=== PATIENT | female | born 1930 | race Two or more races ===

== ENCOUNTER 2020-02-19 00:02 | Inpatient (IN) | payer MEDICARE, MEDICAID ==
[~2020-02-19] VITALS: Ht 152.4 cm; Wt 86.2 kg
[2020-02-19 02:00] VITALS: BP 90/69
[2020-02-19] MEDS: Xarelto 10mg tab ORAL SCH (03:03)
[2020-02-19] MEDS ORDERED: FUROSEMIDE40 MG/5 ML ORAL (03:41)
[2020-02-19] MEDS ORDERED: CENTRUM SILVER1 EAC4 PO (03:41)
[2020-02-19] MEDS ORDERED: LISINOPRIL20 MG ORAL (03:41)
[2020-02-19] MEDS ORDERED: STOOL SOFTENER100 MG PO (03:41)
[2020-02-19] MEDS ORDERED: POTASSIUM99 M3 PO (03:41)
[2020-02-19] MEDS ORDERED: OMEPRAZOLE20 M3 ORAL (03:41)
[2020-02-19] MEDS ORDERED: CLARITIN10 M2 ORAL (03:41)
[2020-02-19] MEDS ORDERED: VITAMIN D3250 MCG PO (03:41)
[2020-02-19 04:00] VITALS: BP 105/54
[2020-02-19] MEDS ORDERED: Tylenol #3 tab (300mg/30mg) ORAL PRN (07:15)
[2020-02-19] MEDS ORDERED: Zolpidem 5mg tab ORAL PRN (07:15)
[2020-02-19 08:00] VITALS: BP 108/54
[2020-02-19] MEDS: Docusate 100mg cap ORAL SCH ×3 (08:46→17:58)
--- NOTE | 2020-02-19 09:20 | Cardiac Electrophysiology PN ---
Subjective Subjective PATIENT SEEN WITH RN PRESENT. [id number] Objective Last 24 Hour Vital Signs Date Time Temp Pulse Resp B/P (MAP) Pulse Ox O2 Delivery O2 Flow Rate FiO2 02/19/20 04:16 Nasal Cannula 2.0 02/19/20 04:00 97.1 114 20 105/54 (71) 95 02/19/20 04:00 97.1 114 20 105/54 (71) 95 02/19/20 02:00 99.3 86 90/69 (76) 95 Intake and Output 02/18/20 02/19/20 19:00 07:00 # Voids 2 Barrett Jacinto MD Feb 19, 2020 09:20
[2020-02-19] MEDS ORDERED: Digoxin 0.5mg/2ml Inj IVP SCH (09:30)
[2020-02-19 09:58] LABS: BASOPHILS % (AUTO) 0.8 % (0.0-2.0); EOSINOPHILS % (AUTO) 0.7 % (0.0-3.0); HEMATOCRIT 35.8 % (37.0-47.0); HEMOGLOBIN 9.6 G/DL (12.0-16.0); LYMPHOCYTES % (AUTO) 21.2 % (20.0-45.0); MEAN CORPUSCULAR VOLUME 80 FL (80-99); MONOCYTES % (AUTO) 5.7 % (1.0-10.0); NEUTROPHILS % (AUTO) 71.7 % (45.0-75.0); PLATELET COUNT 221 K/UL (150-450); RED BLOOD COUNT 4.49 M/UL (4.20-5.40); RED CELL DISTRIBUTION WIDTH 18.1 % (11.6-14.8); WHITE BLOOD COUNT 7.6 K/UL (4.8-10.8)
[2020-02-19 10:29] LABS: ALANINE AMINOTRANSFERASE 27 U/L (12-78); ALBUMIN 3.3 G/DL (3.4-5.0); ALBUMIN/GLOBULIN RATIO 0.8 (1.0-2.7); ALKALINE PHOSPHATASE 102 U/L (46-116); ASPARTATE AMINO TRANSFERASE 18 U/L (15-37); BILIRUBIN,TOTAL 0.3 MG/DL (0.2-1.0); BLOOD UREA NITROGEN 7 mg/dL (7-18); CALCIUM 8.6 MG/DL (8.5-10.1); CHLORIDE 93 MMOL/L (98-107); CREATININE 0.5 MG/DL (0.55-1.30); POTASSIUM 3.6 MMOL/L (3.5-5.1); SODIUM 140 MMOL/L (136-145)
[2020-02-19 10:33] LABS: CARBON DIOXIDE > 45 MMOL/L (21-32)
[2020-02-19] MEDS ORDERED: Promethazine/Codeine 5ml UD ORAL PRN (11:45)
[2020-02-19 11:57] LABS: LACTATE DEHYDROGENASE 233 U/L (81-234)
[2020-02-19 12:00] VITALS: BP 116/65
--- NOTE | 2020-02-19 12:02 | Consultation ---
History of Present Illness General Date patient seen: Feb 19, 2020 Present Illness HPI 89 year old female with hx of chronic incomplete quadriplegia, s/p cervical laminectomy, DM, CHF, on Xarelto was taken to [facility] by paramedics with CC of shortness of breath and generalized weakness. She had home oxygen, 2 liter. She was found to be in rapid A-fib. After initial treatment, she is transferred to [facility] for further treatment. Allergies: Coded Allergies: NO KNOWN ALLERGIES (Verified Allergy, Unknown, 02/19/20) Medication History Scheduled Docusate Sodium (Stool Softener), 100 MG PO THREE TIMES A DAY, (Reported) Furosemide (Furosemide), 40 MG ORAL DAILY, (Reported) Lisinopril (Lisinopril*), 40 MG ORAL DAILY, (Reported) Loratadine (Claritin), 10 MG ORAL DAILY, (Reported) Mu-Vits-Min Th/Lycopene/Lutein (Centrum Silver Tablet), 1 EACH PO DAILY, ( Reported) Omeprazole (Omeprazole), 20 MG ORAL DAILY, (Reported) Miscellaneous Medications Cholecalciferol (Vitamin D3) (Vitamin D3), 1 MCG PO, (Reported) Potassium Gluconate (Potassium), 8 MG PO, (Reported) Patient History Healthcare decision maker Resuscitation status Advanced Directive on File Yes Past Medical/Surgical History Past Medical/Surgical History: (1) Chronic anticoagulation (2) Chronic incomplete quadriplegia (3) Diabetes mellitus Review of Systems Respiratory: Reports: shortness of breath, sputum All Other Systems: negative except mentioned in HPI Physical Exam General Appearance: WD/WN, obese Lines, tubes and drains: peripheral HEENT: normocephalic, atraumatic Neck: non-tender, normal alignment Respiratory/Chest: chest wall non-tender, rhonchi - left, rhonchi - right Cardiovascular/Chest: normal peripheral pulses, normal rate Abdomen: normal bowel sounds, non tender Genitourinary/Rectal: normal genital exam Extremities: moderate edema Skin Exam: normal pigmentation 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 normal, motor weakness Last 24 Hour Vital Signs Date Time Temp Pulse Resp B/P (MAP) Pulse Ox O2 Delivery O2 Flow Rate FiO2 02/19/20 10:25 114 02/19/20 04:16 Nasal Cannula 2.0 02/19/20 04:00 97.1 114 20 105/54 (71) 95 02/19/20 04:00 97.1 114 20 105/54 (71) 95 02/19/20 02:00 99.3 86 90/69 (76) 95 Intake and Output 02/18/20 02/19/20 19:00 07:00 # Voids 2 Laboratory Tests Test 02/19/20 09:45 White Blood Count 7.6 K/UL (4.8-10.8) Red Blood Count 4.49 M/UL (4.20-5.40) Hemoglobin 9.6 G/DL (12.0-16.0) L Hematocrit 35.8 % (37.0-47.0) L Mean Corpuscular Volume 80 FL (80-99) Mean Corpuscular Hemoglobin 21.5 PG (27.0-31.0) L Mean Corpuscular Hemoglobin Concent 27.0 G/DL (32.0-36.0) L Red Cell Distribution Width 18.1 % (11.6-14.8) H Platelet Count 221 K/UL (150-450) Mean Platelet Volume 6.5 FL (6.5-10.1) Neutrophils (%) (Auto) 71.7 % (45.0-75.0) Lymphocytes (%) (Auto) 21.2 % (20.0-45.0) Monocytes (%) (Auto) 5.7 % (1.0-10.0) Eosinophils (%) (Auto) 0.7 % (0.0-3.0) Basophils (%) (Auto) 0.8 % (0.0-2.0) Sodium Level 140 MMOL/L (136-145) Potassium Level 3.6 MMOL/L (3.5-5.1) Chloride Level 93 MMOL/L (98-107) L Carbon Dioxide Level > 45 MMOL/L (21-32) *H Blood Urea Nitrogen 7 mg/dL (7-18) Creatinine 0.5 MG/DL (0.55-1.30) L Estimat Glomerular Filtration Rate > 60 mL/min (>60) Glucose Level 276 MG/DL (74-106) H Calcium Level 8.6 MG/DL (8.5-10.1) Phosphorus Level 3.0 MG/DL (2.5-4.9) Magnesium Level 1.2 MG/DL (1.8-2.4) L Total Bilirubin 0.3 MG/DL (0.2-1.0) Aspartate Amino Transf (AST/SGOT) 18 U/L (15-37) Alanine Aminotransferase (ALT/SGPT) 27 U/L (12-78) Alkaline Phosphatase 102 U/L (46-116) Troponin I 0.002 ng/mL (0.000-0.056) Pro-B-Type Natriuretic Peptide 1258 pg/mL (0-125) H Total Protein 7.2 G/DL (6.4-8.2) Albumin 3.3 G/DL (3.4-5.0) L Globulin 3.9 g/dL Albumin/Globulin Ratio 0.8 (1.0-2.7) L Height (Feet): 5 Weight (Pounds): 190 Medications Current Medications Medications (Trade) Dose Ordered Sig/Alethea Route PRN Reason Start Time Stop Time Status Last Admin Dose Admin Acetaminophen (Tylenol) 650 mg Q6H PRN ORAL For Headache 02/19/20 07:15 03/20/20 07:14 Acetaminophen/ Codeine Phosphate (Tylenol #3) 1 tab Q6H PRN ORAL pain 02/19/20 07:15 02/26/20 07:14 Digoxin (Lanoxin) 0.25 mg DAILY ORAL 02/20/20 09:00 05/20/20 08:59 Docusate Sodium (Colace) 100 mg THREE TIMES A DAY ORAL 02/19/20 09:00 03/20/20 08:59 02/19/20 08:46 Metoprolol Tartrate (Lopressor) 25 mg Q12HR ORAL 02/19/20 09:00 05/19/20 08:59 Ondansetron HCl (Zofran) 4 mg Q6H PRN IVP Nausea & Vomiting 02/19/20 07:15 03/20/20 07:14 Pantoprazole (Protonix) 40 mg DAILY ORAL 02/19/20 09:00 03/20/20 08:59 02/19/20 08:46 Potassium Chloride (K-Dur) 10 meq DAILY ORAL 02/19/20 10:40 05/19/20 10:39 02/19/20 11:39 Promethazine HCl/ Codeine (Phenergan with Codeine) 5 ml Q4H PRN ORAL For Cough 02/19/20 11:45 03/20/20 11:44 Rivaroxaban (Xarelto) 20 mg DAILY ORAL 02/19/20 10:43 05/19/20 10:42 02/19/20 03:03 Zolpidem Tartrate (Ambien) 5 mg HSPRN PRN ORAL Insomnia 02/19/20 07:15 02/26/20 07:14 Assessment/Plan Problem List: (1) Suspected COVID-19 virus infection ICD Codes: Z20.828 - Contact with and (suspected) exposure to other viral communicable diseases SNOMED: 452351542 (2) Rapid atrial fibrillation ICD Codes: I48.91 - Unspecified atrial fibrillation SNOMED: 300556781 (3) Pulmonary edema ICD Codes: J81.1 - Chronic pulmonary edema SNOMED: 43458563 (4) Diabetes mellitus ICD Codes: E11.9 - Type 2 diabetes mellitus without complications SNOMED: 84695716 (5) On home O2 ICD Codes: Z99.81 - Dependence on supplemental oxygen SNOMED: 412165483380 (6) posteior cervical laminectomy (7) Chronic incomplete quadriplegia ICD Codes: G82.50 - Quadriplegia, unspecified SNOMED: 37835027, 156136974 (8) Chronic anticoagulation ICD Codes: Z79.01 - long term (current) use of anticoagulants SNOMED: 651573767 Assessment/Plan: respiratory treatment check sputum f/u BNP and CXR echocardiogram dvt prophylaxis (pt is on Xarelto) control heart rate symptomatic treatment Keo Posadas MD Feb 19, 2020 12:02
[2020-02-19 12:40] LABS: % IRON SATURATION 5 % (15-50); IRON 23 ug/dL (50-175); TOTAL IRON BINDING CAPACITY 448 ug/dL (250-450)
--- NOTE | 2020-02-19 13:58 | Diagnostic Imaging Report ---
Indication: Shortness of breath Technique: XRAY Chest 1v Comparison: None Findings: Heart is enlarged. There are bilateral pleural effusions, left greater than right. There are bibasilar airspace opacities. There is haziness of the pulmonary vascularity. There is no evidence of pneumothorax. There are atherosclerotic vascular calcifications. There are degenerative changes in the spine and shoulders. Cervical fixation hardware is noted. IMPRESSION: Cardiomegaly with interstitial opacification/edema and small bilateral pleural effusions likely related to CHF. Bibasilar airspace opacities may be related to compressive atelectasis. Superimposed pneumonia however is not excluded. Correlation with clinical findings and follow-up recommended.
[2020-02-19] MEDS: cefTRIAXone 1 GM in D5W 55 ML IVPB SCH (14:00)
--- NOTE | 2020-02-19 14:52 | Consultation ---
History of Present Illness General Date patient seen: Feb 19, 2020 Present Illness HPI 89 y/o F with hx of chronic incomplete quadriplegia, s/p cervical laminectomy, DM, CHF on home O2 at 2l nC, Afib on Xarelto is transferred from [facility] to [facility] on 02/18 with SOB and generalized weakness. Upon admissions, was noted to be in Afib with rapid RVR Allergies: Coded Allergies: NO KNOWN ALLERGIES (Verified Allergy, Unknown, 02/19/20) Medication History Scheduled Docusate Sodium (Stool Softener), 100 MG PO THREE TIMES A DAY, (Reported) Furosemide (Furosemide), 40 MG ORAL DAILY, (Reported) Lisinopril (Lisinopril*), 40 MG ORAL DAILY, (Reported) Loratadine (Claritin), 10 MG ORAL DAILY, (Reported) Mu-Vits-Min Th/Lycopene/Lutein (Centrum Silver Tablet), 1 EACH PO DAILY, ( Reported) Omeprazole (Omeprazole), 20 MG ORAL DAILY, (Reported) Miscellaneous Medications Cholecalciferol (Vitamin D3) (Vitamin D3), 1 MCG PO, (Reported) Potassium Gluconate (Potassium), 8 MG PO, (Reported) Patient History Healthcare decision maker Resuscitation status Advanced Directive on File Yes Patient History Narrative Pmhx: as above Shx: reviewed Fhx: non contributory Review of Systems All Other Systems: negative except mentioned in HPI Physical Exam Physical Exam Narrative General Appearance: WD/WN, obese HEENT: normocephalic, atraumatic Neck: non-tender, normal alignment Respiratory/Chest: chest wall non-tender, rhonchi - left, rhonchi - right Cardiovascular/Chest: normal peripheral pulses, normal rate Abdomen: normal bowel sounds, non tender Extremities: moderate edema Skin Exam: normal pigmentation 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 normal, motor weakness Last 24 Hour Vital Signs Date Time Temp Pulse Resp B/P (MAP) Pulse Ox O2 Delivery O2 Flow Rate FiO2 02/19/20 10:25 114 02/19/20 04:16 Nasal Cannula 2.0 02/19/20 04:00 97.1 114 20 105/54 (71) 95 02/19/20 04:00 97.1 114 20 105/54 (71) 95 02/19/20 02:00 99.3 86 90/69 (76) 95 Intake and Output 02/18/20 02/19/20 19:00 07:00 # Voids 2 Laboratory Tests Test 02/19/20 09:45 White Blood Count 7.6 K/UL (4.8-10.8) Red Blood Count 4.49 M/UL (4.20-5.40) Hemoglobin 9.6 G/DL (12.0-16.0) L Hematocrit 35.8 % (37.0-47.0) L Mean Corpuscular Volume 80 FL (80-99) Mean Corpuscular Hemoglobin 21.5 PG (27.0-31.0) L Mean Corpuscular Hemoglobin Concent 27.0 G/DL (32.0-36.0) L Red Cell Distribution Width 18.1 % (11.6-14.8) H Platelet Count 221 K/UL (150-450) Mean Platelet Volume 6.5 FL (6.5-10.1) Neutrophils (%) (Auto) 71.7 % (45.0-75.0) Lymphocytes (%) (Auto) 21.2 % (20.0-45.0) Monocytes (%) (Auto) 5.7 % (1.0-10.0) Eosinophils (%) (Auto) 0.7 % (0.0-3.0) Basophils (%) (Auto) 0.8 % (0.0-2.0) Differential Total Cells Counted 100 Neutrophils % (Manual) 69 % (45-75) Lymphocytes % (Manual) 26 % (20-45) Monocytes % (Manual) 5 % (1-10) Eosinophils % (Manual) 0 % (0-3) Basophils % (Manual) 0 % (0-2) Band Neutrophils 0 % (0-8) Platelet Estimate Adequate Platelet Morphology Normal Hypochromasia 2+ Anisocytosis 2+ Erythrocyte Sedimentation Rate 14 MM/HR (0-30) Reticulocyte Count 1.6 % (0.5-2.0) Sodium Level 140 MMOL/L (136-145) Potassium Level 3.6 MMOL/L (3.5-5.1) Chloride Level 93 MMOL/L (98-107) L Carbon Dioxide Level > 45 MMOL/L (21-32) *H Blood Urea Nitrogen 7 mg/dL (7-18) Creatinine 0.5 MG/DL (0.55-1.30) L Estimat Glomerular Filtration Rate > 60 mL/min (>60) Glucose Level 276 MG/DL (74-106) H Calcium Level 8.6 MG/DL (8.5-10.1) Phosphorus Level 3.0 MG/DL (2.5-4.9) Magnesium Level 1.2 MG/DL (1.8-2.4) L Iron Level 23 ug/dL (50-175) L Total Iron Binding Capacity 448 ug/dL (250-450) Percent Iron Saturation 5 % (15-50) L Unsaturated Iron Binding 425 ug/dL (112-346) H Total Bilirubin 0.3 MG/DL (0.2-1.0) Aspartate Amino Transf (AST/SGOT) 18 U/L (15-37) Alanine Aminotransferase (ALT/SGPT) 27 U/L (12-78) Alkaline Phosphatase 102 U/L (46-116) Lactate Dehydrogenase 233 U/L (81-234) Troponin I 0.002 ng/mL (0.000-0.056) Pro-B-Type Natriuretic Peptide 1258 pg/mL (0-125) H Total Protein 7.2 G/DL (6.4-8.2) Albumin 3.3 G/DL (3.4-5.0) L Globulin 3.9 g/dL Albumin/Globulin Ratio 0.8 (1.0-2.7) L Carcinoembryonic Antigen Pending Vitamin B12 Level 1056 PG/ML (193-986) H Folate 56.4 NG/ML (8.6-58.9) Height (Feet): 5 Weight (Pounds): 190 Medications Current Medications Medications (Trade) Dose Ordered Sig/Alethea Route PRN Reason Start Time Stop Time Status Last Admin Dose Admin Acetaminophen (Tylenol) 650 mg Q6H PRN ORAL For Headache 02/19/20 07:15 03/20/20 07:14 Acetaminophen/ Codeine Phosphate (Tylenol #3) 1 tab Q6H PRN ORAL pain 02/19/20 07:15 02/26/20 07:14 Ceftriaxone Sodium 1 gm/ Dextrose 55 ml @ 110 mls/hr Q24H IVPB 02/19/20 14:00 02/26/20 13:59 Dextrose (Dextrose 50%) 25 ml Q30M PRN IV Hypoglycemia 02/19/20 12:00 05/19/20 11:59 Dextrose (Dextrose 50%) 50 ml Q30M PRN IV Hypoglycemia 02/19/20 12:00 05/19/20 11:59 Digoxin (Lanoxin) 0.25 mg DAILY ORAL 02/20/20 09:00 05/20/20 08:59 Docusate Sodium (Colace) 100 mg THREE TIMES A DAY ORAL 02/19/20 09:00 03/20/20 08:59 02/19/20 08:46 Insulin Aspart (NovoLOG) BEFORE MEALS AND HS SUBQ 02/19/20 16:30 05/19/20 16:29 Magnesium Sulfate 100 ml @ 100 mls/hr Q1H IVPB 02/19/20 13:00 02/19/20 14:59 Metoprolol Tartrate (Lopressor) 25 mg Q12HR ORAL 02/19/20 09:00 05/19/20 08:59 Ondansetron HCl (Zofran) 4 mg Q6H PRN IVP Nausea & Vomiting 02/19/20 07:15 03/20/20 07:14 Pantoprazole (Protonix) 40 mg DAILY ORAL 02/19/20 09:00 03/20/20 08:59 02/19/20 08:46 Potassium Chloride (K-Dur) 10 meq DAILY ORAL 02/19/20 10:40 05/19/20 10:39 02/19/20 11:39 Promethazine HCl/ Codeine (Phenergan with Codeine) 5 ml Q4H PRN ORAL For Cough 02/19/20 11:45 03/20/20 11:44 Rivaroxaban (Xarelto) 20 mg DAILY ORAL 02/19/20 10:43 05/19/20 10:42 02/19/20 03:03 Zolpidem Tartrate (Ambien) 5 mg HSPRN PRN ORAL Insomnia 02/19/20 07:15 02/26/20 07:14 Assessment/Plan Assessment/Plan: Abx: Ceftriaxone 02/18- Assessment: Dyspnea Afib with RVR CHF exacebation and b/l pleural effusions ?Pnuemonia- r.o COVID19 Acute on chronic resp failure- on 2L nC -CXR: Cardiomegaly with interstitial opacification/edema and small bilateral pleural effusions likely related to CHF. Bibasilar airspace opacities may be related to compressive atelectasis. Superimposed pneumonia however is not excluded. Correlation with clinical findings and follow-up recommended. Afebrile No leukocytosis chronic incomplete quadriplegia s/p cervical laminectomy DM CHF on home O2 at 2l nC Afib on Xarelto Plan: -Continue empiric Ceftriaxone #1 -f/u cx -Monitor CBC/CMP, temperatures -COVID19 isolation and testing -Cards f/u Thank you for this consultation. Will continue to follow along with you. Discussed with GENI. Hillary Naik M.D. Feb 19, 2020 14:52
[2020-02-19 16:00] VITALS: BP 118/66
[2020-02-19] MEDS: NovoLOG Insulin Flexpen SUBQ SCH ×2 (17:59→20:38)
--- NOTE | 2020-02-19 18:15 | Consultation ---
DATE OF CONSULTATION: 02/19/2020 CARDIOLOGY CONSULTATION CONSULTING PHYSICIAN: Barrett Jacinto MD REFERRING PHYSICIAN: Lawson Lindsey MD REASON FOR CONSULTATION: Management of hypertension, congestive heart failure, and atrial fibrillation. HISTORY OF PRESENT ILLNESS: The patient is an 89-year-old lady with history of hypertension and congestive heart failure as well as chronic atrial fibrillation, on chronic anticoagulation with Xarelto and metoprolol, was presented to the hospital with generalized weakness and shortness of breath. 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 In home, she is on 2 L nasal cannula. For the last two to three days, has been having increasing generalized weakness and shortness of breath. The patient was evaluated at [place] and was transferred to [facility] in view of insurance reason. REVIEW OF SYSTEMS: Review of systems was negative other than what was mentioned in the history of present illness. PAST MEDICAL HISTORY: As mentioned above. FAMILY HISTORY: Noncontributory. ALLERGIES: She has no known drug allergies. MEDICATIONS: Per reconciliation include Lasix, lisinopril, metoprolol, and Xarelto. PHYSICAL EXAMINATION: VITAL SIGNS: Show blood pressure of 105/54, it was as low as 90/69, pulse is 110, respirations 18, and temperature 97.1. HEAD AND NECK: Shows no JVD. LUNGS: Decreased breath sounds. CARDIOVASCULAR: Shows regular S1 and S2 with no gallop. ABDOMEN: Soft. EXTREMITIES: No pitting edema. LABORATORY AND DIAGNOSTIC STUDIES: COVID at [place] was negative. Lactic acid was 2. White count of 6.7, hemoglobin of 9.7, hematocrit of 33, and platelet count of 228. Sodium 132, potassium 4.6, BUN of 9, creatinine of 0.31. Troponin is negative. BNP is 226, mildly elevated. EKG showed atrial fibrillation with rapid ventricular response. ASSESSMENT AND PLAN: 1. Atrial fibrillation with rapid ventricular response. Her heart rate is 120. I will discontinue IV Lasix and try to maximize the beta aleksandra for rate control if the blood pressure allows. I will start the patient on digoxin 0.5 mg IV and I will check a digoxin level in the morning. 2. Hypotension. Blood pressure is in 90s, response. May need to give IV fluids actually. We will discontinue Lasix. 3. Congestive heart failure. Echocardiogram is pending. 4. History of incomplete quadriplegia. 5. Hyponatremia. Her BNP is only 220. Thank you very much for allowing me to participate in the care of this patient. Please do not hesitate to contact me for any questions regarding my evaluation. The case was discussed with the nurse at the bedside. Barrett Jacinto M.D. DR: SUSANNAH JOB#: [id number] CC:
--- NOTE | 2020-02-19 19:55 | History & Physical ---
History and Physical History & Physicial Dictation Lawson Lindsey MD Feb 19, 2020 19:55
[2020-02-19 20:00] VITALS: BP 114/73
[2020-02-20] VITALS: BP 128/63
--- NOTE | 2020-02-20 00:44 | History and Physical Report ---
DATE OF ADMISSION: 02/19/2020 CHIEF COMPLAINT: Shortness of breath. HISTORY OF PRESENT ILLNESS: This is an 89-year-old very delightful female with past medical history significant for hypertension, congestive heart failure, chronic atrial fibrillation on anticoagulation with Xarelto who presented to the hospital initially to [facility] at [place] complaining about shortness of breath and weakness. Patient has a history of quadriplegia secondary to the spinal injury. She is on home 2 liters nasal cannula. She has been having progressive worsening of shortness of breath and weakness over past 2 to 3 days. She presented to [facility], [place] and noted in atrial fibrillation with rapid ventricular rate and chest congestion on a chest x-ray and subsequently the patient was transferred to [facility] for further evaluation and therapy. Shortly after initial evaluation, patient was admitted to the hospital with hypotension as well as atrial fibrillation with rapid ventricular rate and a chest congestion, possible pneumonia versus congestive heart failure. PAST MEDICAL HISTORY/PAST SURGICAL HISTORY: As above history of hypertension, congestive heart failure, history of lower extremity weakness and quadriplegia due to the spinal injury, chronic respiratory failure on home oxygen, morbid obesity. MEDICATIONS AT HOME: Please refer to medication reconciliation. ALLERGIES: No known drug allergies. SOCIAL HISTORY: Denies any smoking, alcohol, or drugs. FAMILY HISTORY: Noncontributory. REVIEW OF SYSTEMS: Mostly as above. Denies any dysuria, frequency, or hematuria. Denies any hemoptysis or hematochezia. Denies any bright red blood per rectum. Denies any loss of consciousness. Denies any fall or head trauma. PHYSICAL EXAMINATION: VITAL SIGNS: On admission, temperature 97.7, pulse of 86, respirations 19, blood pressure 108/54. GENERAL: Patient is awake, responsive, no acute distress. HEAD AND NECK: Pupils are equal and reactive to light. Extraocular movements intact. Neck was supple. No JVD. LUNGS: Good air entry. Decreased air in the bases. No wheezes or rhonchi. HEART: S1, S2. Irregular. Distant heart sounds. No murmur or gallops. ABDOMEN: Soft, nondistended, nontender. Morbidly obese. EXTREMITIES: No cyanosis, clubbing, or edema. NEUROLOGIC: Limited secondary to patient's status. Cranial nerves II through XII grossly intact. Patient is moving upper extremities. Lower extremities weak and limited range of motion. Gait was not assessed due to patient's status. RECTAL/GENITOURINARY: Refused and deferred. PSYCHIATRIC: Mood and affect unable to obtain. LABORATORY DATA: On admission WBC of 7.6, hemoglobin 9.6, hematocrit 35, platelets 221. Sodium 140, potassium 3.6, chloride 93, bicarb is greater than 45, BUN 7, creatinine 0.5, GFR is greater than 60, glucose is 276, phosphate is 3.0, calcium is 8.6, magnesium is 1.2. BNP of 1258. Patient's iron studies showed that the total iron is 23, low, TIBC is 448, and iron saturation is 5, low. Unsaturated iron binding is 425. Vitamin B12 is 1056 and folic acid is 56. Chest x-ray, cardiomegaly with interstitial opacity, edema, and small bilateral pleural effusion, likely related to CHF; however, cannot rule out underlying pneumonia. ASSESSMENT: 1. Atrial fibrillation with rapid ventricular rate. 2. Hypotension, most likely secondary to tachyarrhythmia. 3. History of high blood pressure. 4. Hyponatremia. 5. Iron deficiency anemia. 6. Diabetes type 2. 7. Morbid obesity. 8. Congestive heart failure. 9. Abnormal chest x-ray, possible due to acute CHF versus pneumonia. PLAN: Admit patient to monitor unit. We follow up with Dr. Posadas from Pulmonary Critical Care and Dr. Jacinto, Cardiology Electrophysiology. Follow up with 2D echo. Monitor laboratory in the morning. GI consultation with Dr. Sprague and Infectious Disease consultation with Dr. Naik. Stool for occult blood and continue on anticoagulation with Xarelto. Monitor laboratory in the morning. Code status is Full Code. Lawson Lindsey M.D. DR: LIAT JOB#: [id number] CC:
[2020-02-20 04:00] VITALS: BP 131/64
[2020-02-20] MEDS: NovoLOG Insulin Flexpen SUBQ SCH ×4 (06:42→21:00)
[2020-02-20 07:18] LABS: BASOPHILS % (AUTO) 0.9 % (0.0-2.0); EOSINOPHILS % (AUTO) 0.9 % (0.0-3.0); HEMATOCRIT 35.6 % (37.0-47.0); HEMOGLOBIN 9.8 G/DL (12.0-16.0); LYMPHOCYTES % (AUTO) 24.5 % (20.0-45.0); MEAN CORPUSCULAR VOLUME 78 FL (80-99); MONOCYTES % (AUTO) 6.2 % (1.0-10.0); NEUTROPHILS % (AUTO) 67.5 % (45.0-75.0); PLATELET COUNT 235 K/UL (150-450); RED BLOOD COUNT 4.54 M/UL (4.20-5.40); RED CELL DISTRIBUTION WIDTH 17.3 % (11.6-14.8); WHITE BLOOD COUNT 5.9 K/UL (4.8-10.8)
--- NOTE | 2020-02-20 07:51 | Pulmonology Progress Note ---
Subjective Allergies: Coded Allergies: NO KNOWN ALLERGIES (Verified Allergy, Unknown, 02/19/20) Subjective on O2 via NC<; no signs of resp distress CO2>45 on BMP, likely chronic K-3.4 denies CP, cough remain in isolation Objective Last 24 Hour Vital Signs Date Time Temp Pulse Resp B/P (MAP) Pulse Ox O2 Delivery O2 Flow Rate FiO2 02/20/20 04:00 80 02/20/20 04:00 98.1 75 23 131/64 (86) 94 02/20/20 00:00 97.6 74 22 128/63 (84) 95 02/20/20 00:00 69 02/19/20 21:58 38 02/19/20 21:00 Nasal Cannula 2.0 02/19/20 20:35 78 114/61 02/19/20 20:00 89 02/19/20 20:00 98.4 76 22 114/73 (87) 95 02/19/20 16:00 97.6 87 18 118/66 (83) 98 02/19/20 16:00 71 02/19/20 13:07 42 02/19/20 12:00 87 02/19/20 12:00 99.1 73 18 116/65 (82) 100 02/19/20 10:25 114 02/19/20 09:00 116 02/19/20 09:00 Nasal Cannula 2.0 02/19/20 08:00 97.7 86 19 108/54 (72) 93 Intake and Output 02/19/20 02/20/20 19:00 07:00 Intake Total 336 ml Output Total 600 ml Balance 336 ml -600 ml Intake Oral 336 ml Output Urine Total 600 ml General Appearance: no acute distress, other - bedridden chroncially ill Chilean speaking obese female in NAD HEENT: normocephalic, atraumatic, anicteric, mucous membranes moist Respiratory: no respiratory distress, no accessory muscle use, decreased breath sounds Cardiovascular: normal peripheral pulses, normal rate Abdomen: soft, non tender - obese Extremities: pedal pulses normal, other - +1 edema BLE Neurologic: abnormal gait - bedridden , alert, responsive, other - quadriplegia Musculoskeletal: atrophy Laboratory Tests 02/19/20 09:45: White Blood Count 7.6, Red Blood Count 4.49, Hemoglobin 9.6L, Hematocrit 35.8L, Mean Corpuscular Volume 80, Mean Corpuscular Hemoglobin 21.5L, Mean Corpuscular Hemoglobin Concent 27.0L, Red Cell Distribution Width 18.1H, Platelet Count 221 , Mean Platelet Volume 6.5, Neutrophils (%) (Auto) 71.7, Lymphocytes (%) (Auto) 21.2, Monocytes (%) (Auto) 5.7, Eosinophils (%) (Auto) 0.7, Basophils (%) (Auto ) 0.8, Differential Total Cells Counted 100, Neutrophils % (Manual) 69, Lymphocytes % (Manual) 26, Monocytes % (Manual) 5, Eosinophils % (Manual) 0, Basophils % (Manual) 0, Band Neutrophils 0, Platelet Estimate Adequate, Platelet Morphology Normal, Hypochromasia 2+, Anisocytosis 2+, Erythrocyte Sedimentation Rate 14, Reticulocyte Count 1.6, Sodium Level 140, Potassium Level 3.6, Chloride Level 93L, Carbon Dioxide Level > 45*H, Blood Urea Nitrogen 7, Creatinine 0.5L, Estimat Glomerular Filtration Rate > 60, Glucose Level 276H , Calcium Level 8.6, Phosphorus Level 3.0, Magnesium Level 1.2L, Iron Level 23L , Total Iron Binding Capacity 448, Percent Iron Saturation 5L, Unsaturated Iron Binding 425H, Total Bilirubin 0.3, Aspartate Amino Transf (AST/SGOT) 18, Alanine Aminotransferase (ALT/SGPT) 27, Alkaline Phosphatase 102, Lactate Dehydrogenase 233, Troponin I 0.002, Pro-B-Type Natriuretic Peptide 1258H, Total Protein 7.2, Albumin 3.3L, Globulin 3.9, Albumin/Globulin Ratio 0.8L, Carcinoembryonic Antigen [Pending], Vitamin B12 Level 1056H, Folate 56.4 02/20/20 05:35: White Blood Count 5.9, Red Blood Count 4.54, Hemoglobin 9.8L, Hematocrit 35.6L, Mean Corpuscular Volume 78L, Mean Corpuscular Hemoglobin 21.7L, Mean Corpuscular Hemoglobin Concent 27.7L, Red Cell Distribution Width 17.3H, Platelet Count 235, Mean Platelet Volume 6.3L, Neutrophils (%) (Auto) 67.5, Lymphocytes (%) (Auto) 24.5, Monocytes (%) (Auto) 6.2, Eosinophils (%) (Auto) 0.9, Basophils (%) (Auto) 0.9, Sodium Level [Pending], Potassium Level [Pending] , Chloride Level [Pending], Carbon Dioxide Level [Pending], Blood Urea Nitrogen [Pending], Creatinine [Pending], Estimat Glomerular Filtration Rate [Pending], Glucose Level [Pending], Calcium Level [Pending], Total Bilirubin [Pending], Aspartate Amino Transf (AST/SGOT) [Pending], Alanine Aminotransferase (ALT/SGPT ) [Pending], Alkaline Phosphatase [Pending], Troponin I [Pending], Pro-B-Type Natriuretic Peptide [Pending], Total Protein [Pending], Albumin [Pending], Globulin [Pending], Prothrombin Time [Pending], Prothromb Time International Ratio [Pending], Activated Partial Thromboplast Time [Pending], Thyroid Stimulating Hormone (TSH) [Pending], Free Thyroxine [Pending] Current Medications Medications (Trade) Dose Ordered Sig/Alethea Route PRN Reason Start Time Stop Time Status Last Admin Dose Admin Acetaminophen (Tylenol) 650 mg Q6H PRN ORAL For Headache 02/19/20 07:15 03/20/20 07:14 Acetaminophen/ Codeine Phosphate (Tylenol #3) 1 tab Q6H PRN ORAL pain 02/19/20 07:15 02/26/20 07:14 Ceftriaxone Sodium 1 gm/ Dextrose 55 ml @ 110 mls/hr Q24H IVPB 02/19/20 14:00 02/26/20 13:59 02/19/20 14:00 Dextrose (Dextrose 50%) 25 ml Q30M PRN IV Hypoglycemia 02/19/20 12:00 05/19/20 11:59 Dextrose (Dextrose 50%) 50 ml Q30M PRN IV Hypoglycemia 02/19/20 12:00 05/19/20 11:59 Docusate Sodium (Colace) 100 mg THREE TIMES A DAY ORAL 02/19/20 09:00 03/20/20 08:59 02/19/20 17:58 Insulin Aspart (NovoLOG) BEFORE MEALS AND HS SUBQ 02/19/20 16:30 05/19/20 16:29 02/20/20 06:42 Ondansetron HCl (Zofran) 4 mg Q6H PRN IVP Nausea & Vomiting 02/19/20 07:15 03/20/20 07:14 Pantoprazole (Protonix) 40 mg DAILY ORAL 02/19/20 09:00 03/20/20 08:59 02/19/20 08:46 Potassium Chloride (K-Dur) 10 meq DAILY ORAL 02/19/20 10:40 05/19/20 10:39 02/19/20 11:39 Promethazine HCl/ Codeine (Phenergan with Codeine) 5 ml Q4H PRN ORAL For Cough 02/19/20 11:45 03/20/20 11:44 Rivaroxaban (Xarelto) 20 mg DAILY ORAL 02/19/20 10:43 05/19/20 10:42 02/19/20 03:03 Zolpidem Tartrate (Ambien) 5 mg HSPRN PRN ORAL Insomnia 02/19/20 07:15 02/26/20 07:14 Assessment/Plan Assessment/Plan ASSESSMENT Suspected COVID-19 infection A. 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 The infiltrates may represent pulmonary edema , however superimposed pneumonia, particular the left lower lobe cannot be excluded. given CO2 retention, check ABG ECHO with pEF 55%, no WMA, RVSP of 61 c/w severe pulm HTN off BB and lasix, BP improving fup with cardio recs troponin NGT, tele with intermittent A fib with controlled vent response BS management with SSI continue Xarelto GI prophylaxis replace K monitor HH with goal to keep Hgb>7, ->at baseline anemia w/up c/w BILLY CEA and stool OB pending supportive care case discussed and evaluated by supervising physician Frances Chacon NP Feb 20, 2020 07:51
[2020-02-20 07:52] LABS: ALANINE AMINOTRANSFERASE 24 U/L (12-78); ALBUMIN 3.1 G/DL (3.4-5.0); ALBUMIN/GLOBULIN RATIO 0.8 (1.0-2.7); ALKALINE PHOSPHATASE 86 U/L (46-116); ASPARTATE AMINO TRANSFERASE 16 U/L (15-37); BILIRUBIN,TOTAL 0.4 MG/DL (0.2-1.0); BLOOD UREA NITROGEN 7 mg/dL (7-18); CALCIUM 8.9 MG/DL (8.5-10.1); CHLORIDE 94 MMOL/L (98-107); CREATININE 0.3 MG/DL (0.55-1.30); POTASSIUM 3.3 MMOL/L (3.5-5.1); SODIUM 139 MMOL/L (136-145)
[2020-02-20 08:00] VITALS: BP 125/54
[2020-02-20 08:08] LABS: CARBON DIOXIDE > 45 MMOL/L (21-32)
[2020-02-20 08:24] LABS: INR 1.2 (0.9-1.1)
[2020-02-20] MEDS: Docusate 100mg cap ORAL SCH ×3 (08:28→17:50)
[2020-02-20] MEDS: Xarelto 10mg tab ORAL SCH (08:30)
[2020-02-20] MEDS ORDERED: Sodium Chloride for KCL Premix X 1hr IV SCH (09:30)
--- NOTE | 2020-02-20 09:35 | Diagnostic Imaging Report ---
EXAM: XR Chest, 1 View CLINICAL HISTORY: DYSPNEA TECHNIQUE: Frontal view of the chest. COMPARISON: 1 day prior FINDINGS: Lungs: There are unchanged mild perihilar and lower lobe mixed interstitial and alveolar infiltrates. The infiltrates may represent pulmonary edema however superimposed pneumonia, particular the left lower lobe cannot be excluded. Pleural space: There is an unchanged small left pleural effusion. No pneumothorax. Heart: Unremarkable. No cardiomegaly. Mediastinum: Unremarkable. Bones/joints: Unremarkable. Other findings: There is unchanged cardia megaly. IMPRESSION: There unchanged mild perihilar and lower lobe mixed interstitial and alveolar infiltrates. The infiltrates may represent pulmonary edema however superimposed pneumonia, particular the left lower lobe cannot be excluded.
[2020-02-20 11:44] VITALS: BP 105/81
--- NOTE | 2020-02-20 12:47 | Internal Med Progress Note ---
Subjective Date of Service: Feb 20, 2020 Physician Name PalomaRashi Attending Physician Lawson Lindsey MD Current Medications Medications (Trade) Dose Ordered Sig/Alethea Route PRN Reason Start Time Stop Time Status Last Admin Dose Admin Acetaminophen (Tylenol) 650 mg Q6H PRN ORAL For Headache 02/19/20 07:15 03/20/20 07:14 Acetaminophen/ Codeine Phosphate (Tylenol #3) 1 tab Q6H PRN ORAL pain 02/19/20 07:15 02/26/20 07:14 Ceftriaxone Sodium 1 gm/ Dextrose 55 ml @ 110 mls/hr Q24H IVPB 02/19/20 14:00 02/26/20 13:59 02/19/20 14:00 Dextrose (Dextrose 50%) 25 ml Q30M PRN IV Hypoglycemia 02/19/20 12:00 05/19/20 11:59 Dextrose (Dextrose 50%) 50 ml Q30M PRN IV Hypoglycemia 02/19/20 12:00 05/19/20 11:59 Docusate Sodium (Colace) 100 mg THREE TIMES A DAY ORAL 02/19/20 09:00 03/20/20 08:59 02/20/20 08:28 Insulin Aspart (NovoLOG) BEFORE MEALS AND HS SUBQ 02/19/20 16:30 05/19/20 16:29 02/20/20 11:51 Ondansetron HCl (Zofran) 4 mg Q6H PRN IVP Nausea & Vomiting 02/19/20 07:15 03/20/20 07:14 Pantoprazole (Protonix) 40 mg DAILY ORAL 02/19/20 09:00 03/20/20 08:59 02/20/20 08:29 Potassium Chloride (K-Dur) 10 meq DAILY ORAL 02/19/20 10:40 05/19/20 10:39 02/20/20 08:28 Promethazine HCl/ Codeine (Phenergan with Codeine) 5 ml Q4H PRN ORAL For Cough 02/19/20 11:45 03/20/20 11:44 Rivaroxaban (Xarelto) 20 mg DAILY ORAL 02/19/20 10:43 05/19/20 10:42 02/20/20 08:30 Zolpidem Tartrate (Ambien) 5 mg HSPRN PRN ORAL Insomnia 02/19/20 07:15 02/26/20 07:14 Allergies: Coded Allergies: NO KNOWN ALLERGIES (Verified Allergy, Unknown, 02/19/20) ROS Limited/Unobtainable: No Constitutional: Reports: no symptoms HEENT: Reports: no symptoms Cardiovascular: Reports: no symptoms Respiratory: Reports: shortness of breath Gastrointestinal/Abdominal: Reports: no symptoms Genitourinary: Reports: no symptoms Neurologic/Psychiatric: Reports: no symptoms Subjective 89 YO F admitted with shortness of breath. Now CHF and pneumonia. Cover for Int Med-DR Lindsey Objective Last Vital Signs Date Time Temp Pulse Resp B/P (MAP) Pulse Ox O2 Delivery O2 Flow Rate FiO2 02/20/20 11:44 97.8 90 18 105/81 (89) 98 02/20/20 09:45 Nasal Cannula 2.0 Laboratory Tests Test 02/20/20 05:35 02/20/20 11:36 White Blood Count 5.9 K/UL (4.8-10.8) Red Blood Count 4.54 M/UL (4.20-5.40) Hemoglobin 9.8 G/DL (12.0-16.0) L Hematocrit 35.6 % (37.0-47.0) L Mean Corpuscular Volume 78 FL (80-99) L Mean Corpuscular Hemoglobin 21.7 PG (27.0-31.0) L Mean Corpuscular Hemoglobin Concent 27.7 G/DL (32.0-36.0) L Red Cell Distribution Width 17.3 % (11.6-14.8) H Platelet Count 235 K/UL (150-450) Mean Platelet Volume 6.3 FL (6.5-10.1) L Neutrophils (%) (Auto) 67.5 % (45.0-75.0) Lymphocytes (%) (Auto) 24.5 % (20.0-45.0) Monocytes (%) (Auto) 6.2 % (1.0-10.0) Eosinophils (%) (Auto) 0.9 % (0.0-3.0) Basophils (%) (Auto) 0.9 % (0.0-2.0) Prothrombin Time 12.9 SEC (9.30-11.50) H Prothromb Time International Ratio 1.2 (0.9-1.1) H Activated Partial Thromboplast Time 27 SEC (23-33) Sodium Level 139 MMOL/L (136-145) Potassium Level 3.3 MMOL/L (3.5-5.1) L Chloride Level 94 MMOL/L (98-107) L Carbon Dioxide Level > 45 MMOL/L (21-32) *H Blood Urea Nitrogen 7 mg/dL (7-18) Creatinine 0.3 MG/DL (0.55-1.30) L Estimat Glomerular Filtration Rate > 60 mL/min (>60) Glucose Level 166 MG/DL (74-106) #H Calcium Level 8.9 MG/DL (8.5-10.1) Total Bilirubin 0.4 MG/DL (0.2-1.0) Aspartate Amino Transf (AST/SGOT) 16 U/L (15-37) Alanine Aminotransferase (ALT/SGPT) 24 U/L (12-78) Alkaline Phosphatase 86 U/L (46-116) Troponin I 0.008 ng/mL (0.000-0.056) Pro-B-Type Natriuretic Peptide 633 pg/mL (0-125) H Total Protein 6.9 G/DL (6.4-8.2) Albumin 3.1 G/DL (3.4-5.0) L Globulin 3.8 g/dL Albumin/Globulin Ratio 0.8 (1.0-2.7) L Thyroid Stimulating Hormone (TSH) 3.622 uiU/mL (0.358-3.740) Free Thyroxine 1.07 NG/DL (0.76-1.46) Arterial Blood pH 7.427 (7.350-7.450) Arterial Blood Partial Pressure CO2 65.9 mmHg (35.0-45.0) *H Arterial Blood Partial Pressure O2 72.1 mmHg (75.0-100.0) L Arterial Blood HCO3 42.5 mmol/L (22.0-26.0) *H Arterial Blood Oxygen Saturation 94.3 % (95-100) L Arterial Blood Base Excess 15.5 (-2-2) *H Curtis Test Positive Intake and Output 02/19/20 02/20/20 19:00 07:00 Intake Total 336 ml Output Total 600 ml Balance 336 ml -600 ml Intake Oral 336 ml Output Urine Total 600 ml Objective PHYSICAL EXAMINATION: GENERAL: Patient is awake, responsive, no acute distress. HEAD AND NECK: Pupils are equal and reactive to light. Extraocular movements intact. Neck was supple. No JVD. LUNGS: Good air entry. Decreased air in the bases. No wheezes or rhonchi. HEART: S1, S2. Irregular. Distant heart sounds. No murmur or gallops. ABDOMEN: Soft, nondistended, nontender. Morbidly obese. EXTREMITIES: No cyanosis, clubbing, or edema. NEUROLOGIC: Limited secondary to patient's status. Cranial nerves II through XII grossly intact. Patient is moving upper extremities. Lower extremities weak and limited range of motion. Gait was not assessed due to patient's status. RECTAL/GENITOURINARY: Refused and deferred. PSYCHIATRIC: Mood and affect unable to obtain. Assessment/Plan Assessment/Plan ASSESSMENT: 1. Atrial fibrillation with rapid ventricular rate. 2. Hypotension, most likely secondary to tachyarrhythmia. 3. History of high blood pressure. 4. Hyponatremia. 5. Iron deficiency anemia. 6. Diabetes type 2. 7. Morbid obesity. 8. Congestive heart failure. 9. Abnormal chest x-ray, possible due to acute CHF versus pneumonia. PLAN: 1. Admit patient to monitor unit. 2. Dr. Posadas = Pulmonary Critical Care 3. Dr. Jacinto=Cardiology Electrophysiology. 4. Follow up with 2D echo. 5. GI= Dr. Sprague 6. Infectious Disease = Dr. Naik. 7. Stool for occult blood pending 8. continue on anticoagulation with Xarelto. 9. Code status is Full Code. Rashi Dow MD Feb 20, 2020 12:47
[2020-02-20] MEDS: cefTRIAXone 1 GM in D5W 55 ML IVPB SCH (13:41)
--- NOTE | 2020-02-20 14:11 | Cardiac Electrophysiology PN ---
Assessment/Plan Assessment/Plan 1. Atrial fibrillation with rapid ventricular response. Her heart rate is 120. Had nahid down to 30s as well. Likely tachy nahid. Will DC Dig and resu ,e Lopressor 25 bid Also on Xarelto 20 daily 2. Hypotension. Better off Lasix. 3. Congestive heart failure. Echo EF 55% 4. History of incomplete quadriplegia. 5. Hyponatremia. Her BNP is only 220. Subjective Subjective Had transient Sinus nahid down to 30s and Dig and Lopressor were DCed. Also had atrial flutter. Objective Last 24 Hour Vital Signs Date Time Temp Pulse Resp B/P (MAP) Pulse Ox O2 Delivery O2 Flow Rate FiO2 02/20/20 12:00 87 02/20/20 11:44 97.8 90 18 105/81 (89) 98 02/20/20 09:45 Nasal Cannula 2.0 02/20/20 08:00 78 02/20/20 08:00 97.9 85 18 125/54 (77) 92 02/20/20 04:00 80 02/20/20 04:00 98.1 75 23 131/64 (86) 94 02/20/20 00:00 97.6 74 22 128/63 (84) 95 02/20/20 00:00 69 02/19/20 21:58 38 02/19/20 21:00 Nasal Cannula 2.0 02/19/20 20:35 78 114/61 02/19/20 20:00 89 02/19/20 20:00 98.4 76 22 114/73 (87) 95 02/19/20 16:00 97.6 87 18 118/66 (83) 98 02/19/20 16:00 71 Intake and Output 02/19/20 02/20/20 19:00 07:00 Intake Total 336 ml Output Total 600 ml Balance 336 ml -600 ml Intake Oral 336 ml Output Urine Total 600 ml Laboratory Tests Test 02/20/20 05:35 02/20/20 11:36 White Blood Count 5.9 K/UL (4.8-10.8) Red Blood Count 4.54 M/UL (4.20-5.40) Hemoglobin 9.8 G/DL (12.0-16.0) L Hematocrit 35.6 % (37.0-47.0) L Mean Corpuscular Volume 78 FL (80-99) L Mean Corpuscular Hemoglobin 21.7 PG (27.0-31.0) L Mean Corpuscular Hemoglobin Concent 27.7 G/DL (32.0-36.0) L Red Cell Distribution Width 17.3 % (11.6-14.8) H Platelet Count 235 K/UL (150-450) Mean Platelet Volume 6.3 FL (6.5-10.1) L Neutrophils (%) (Auto) 67.5 % (45.0-75.0) Lymphocytes (%) (Auto) 24.5 % (20.0-45.0) Monocytes (%) (Auto) 6.2 % (1.0-10.0) Eosinophils (%) (Auto) 0.9 % (0.0-3.0) Basophils (%) (Auto) 0.9 % (0.0-2.0) Prothrombin Time 12.9 SEC (9.30-11.50) H Prothromb Time International Ratio 1.2 (0.9-1.1) H Activated Partial Thromboplast Time 27 SEC (23-33) Sodium Level 139 MMOL/L (136-145) Potassium Level 3.3 MMOL/L (3.5-5.1) L Chloride Level 94 MMOL/L (98-107) L Carbon Dioxide Level > 45 MMOL/L (21-32) *H Blood Urea Nitrogen 7 mg/dL (7-18) Creatinine 0.3 MG/DL (0.55-1.30) L Estimat Glomerular Filtration Rate > 60 mL/min (>60) Glucose Level 166 MG/DL (74-106) #H Calcium Level 8.9 MG/DL (8.5-10.1) Total Bilirubin 0.4 MG/DL (0.2-1.0) Aspartate Amino Transf (AST/SGOT) 16 U/L (15-37) Alanine Aminotransferase (ALT/SGPT) 24 U/L (12-78) Alkaline Phosphatase 86 U/L (46-116) Troponin I 0.008 ng/mL (0.000-0.056) Pro-B-Type Natriuretic Peptide 633 pg/mL (0-125) H Total Protein 6.9 G/DL (6.4-8.2) Albumin 3.1 G/DL (3.4-5.0) L Globulin 3.8 g/dL Albumin/Globulin Ratio 0.8 (1.0-2.7) L Thyroid Stimulating Hormone (TSH) 3.622 uiU/mL (0.358-3.740) Free Thyroxine 1.07 NG/DL (0.76-1.46) Arterial Blood pH 7.427 (7.350-7.450) Arterial Blood Partial Pressure CO2 65.9 mmHg (35.0-45.0) *H Arterial Blood Partial Pressure O2 72.1 mmHg (75.0-100.0) L Arterial Blood HCO3 42.5 mmol/L (22.0-26.0) *H Arterial Blood Oxygen Saturation 94.3 % (95-100) L Arterial Blood Base Excess 15.5 (-2-2) *H Curtis Test Positive Objective HEAD AND NECK: Shows no JVD. LUNGS: Decreased breath sounds. CARDIOVASCULAR: Shows regular S1 and S2 with no gallop. ABDOMEN: Soft. EXTREMITIES: No pitting edema. Barrett Jacinto MD Feb 20, 2020 14:11
--- NOTE | 2020-02-20 15:28 | Infectious Diseases Prog Note ---
Assessment/Plan Assessment/Plan Assessment: Dyspnea Afib with RVR CHF exacebation and b/l pleural effusions ?Pnuemonia- r.o COVID19 Acute on chronic resp failure- on 2L nC -02/19 CXR: There unchanged mild perihilar and lower lobe mixed interstitial and alveolar infiltrates. The infiltrates may represent pulmonary edema however superimposed pneumonia, particular the left lower lobe cannot be excluded. -02/18 CXR: Cardiomegaly with interstitial opacification/edema and small bilateral pleural effusions likely related to CHF. Bibasilar airspace opacities may be related to compressive atelectasis. Superimposed pneumonia however is not excluded. Correlation with clinical findings and follow-up recommended. -SARS-COV2 PCR neg Afebrile No leukocytosis chronic incomplete quadriplegia s/p cervical laminectomy DM CHF on home O2 at 2l nC Afib on Xarelto Plan: -Continue empiric Ceftriaxone #2 -f/u cx -Monitor CBC/CMP, temperatures -COVID19 isolation and testing; send 2nd sample -Cards f/u Thank you for this consultation. Will continue to follow along with you. Discussed with RN. Subjective Allergies: Coded Allergies: NO KNOWN ALLERGIES (Verified Allergy, Unknown, 02/19/20) Subjective afebrile at 2l nC 1st Covid neg Objective Vital Signs Last 24 Hour Vital Signs Date Time Temp Pulse Resp B/P (MAP) Pulse Ox O2 Delivery O2 Flow Rate FiO2 02/20/20 12:00 87 02/20/20 11:44 97.8 90 18 105/81 (89) 98 02/20/20 09:45 Nasal Cannula 2.0 02/20/20 08:00 78 02/20/20 08:00 97.9 85 18 125/54 (77) 92 02/20/20 04:00 80 02/20/20 04:00 98.1 75 23 131/64 (86) 94 02/20/20 00:00 97.6 74 22 128/63 (84) 95 02/20/20 00:00 69 02/19/20 21:58 38 02/19/20 21:00 Nasal Cannula 2.0 02/19/20 20:35 78 114/61 02/19/20 20:00 89 02/19/20 20:00 98.4 76 22 114/73 (87) 95 02/19/20 16:00 97.6 87 18 118/66 (83) 98 02/19/20 16:00 71 Height (Feet): 5 Weight (Pounds): 190 Objective General Appearance: WD/WN, obese HEENT: normocephalic, atraumatic Neck: non-tender, normal alignment Respiratory/Chest: chest wall non-tender, rhonchi - left, rhonchi - right Cardiovascular/Chest: normal peripheral pulses, normal rate Abdomen: normal bowel sounds, non tender Extremities: moderate edema Skin Exam: normal pigmentation 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: 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 grossly normal, motor weakness Laboratory Tests Test 02/20/20 05:35 02/20/20 11:36 02/20/20 14:10 White Blood Count 5.9 K/UL (4.8-10.8) Red Blood Count 4.54 M/UL (4.20-5.40) Hemoglobin 9.8 G/DL (12.0-16.0) L Hematocrit 35.6 % (37.0-47.0) L Mean Corpuscular Volume 78 FL (80-99) L Mean Corpuscular Hemoglobin 21.7 PG (27.0-31.0) L Mean Corpuscular Hemoglobin Concent 27.7 G/DL (32.0-36.0) L Red Cell Distribution Width 17.3 % (11.6-14.8) H Platelet Count 235 K/UL (150-450) Mean Platelet Volume 6.3 FL (6.5-10.1) L Neutrophils (%) (Auto) 67.5 % (45.0-75.0) Lymphocytes (%) (Auto) 24.5 % (20.0-45.0) Monocytes (%) (Auto) 6.2 % (1.0-10.0) Eosinophils (%) (Auto) 0.9 % (0.0-3.0) Basophils (%) (Auto) 0.9 % (0.0-2.0) Prothrombin Time 12.9 SEC (9.30-11.50) H Prothromb Time International Ratio 1.2 (0.9-1.1) H Activated Partial Thromboplast Time 27 SEC (23-33) Sodium Level 139 MMOL/L (136-145) Potassium Level 3.3 MMOL/L (3.5-5.1) L Chloride Level 94 MMOL/L (98-107) L Carbon Dioxide Level > 45 MMOL/L (21-32) *H Blood Urea Nitrogen 7 mg/dL (7-18) Creatinine 0.3 MG/DL (0.55-1.30) L Estimat Glomerular Filtration Rate > 60 mL/min (>60) Glucose Level 166 MG/DL (74-106) #H Calcium Level 8.9 MG/DL (8.5-10.1) Total Bilirubin 0.4 MG/DL (0.2-1.0) Aspartate Amino Transf (AST/SGOT) 16 U/L (15-37) Alanine Aminotransferase (ALT/SGPT) 24 U/L (12-78) Alkaline Phosphatase 86 U/L (46-116) Troponin I 0.008 ng/mL (0.000-0.056) Pro-B-Type Natriuretic Peptide 633 pg/mL (0-125) H Total Protein 6.9 G/DL (6.4-8.2) Albumin 3.1 G/DL (3.4-5.0) L Globulin 3.8 g/dL Albumin/Globulin Ratio 0.8 (1.0-2.7) L Thyroid Stimulating Hormone (TSH) 3.622 uiU/mL (0.358-3.740) Free Thyroxine 1.07 NG/DL (0.76-1.46) Arterial Blood pH 7.427 (7.350-7.450) Arterial Blood Partial Pressure CO2 65.9 mmHg (35.0-45.0) *H Arterial Blood Partial Pressure O2 72.1 mmHg (75.0-100.0) L Arterial Blood HCO3 42.5 mmol/L (22.0-26.0) *H Arterial Blood Oxygen Saturation 94.3 % (95-100) L Arterial Blood Base Excess 15.5 (-2-2) *H Curtis Test Positive Stool Occult Blood Pending Current Medications Medications (Trade) Dose Ordered Sig/Alethea Route PRN Reason Start Time Stop Time Status Last Admin Dose Admin Acetaminophen (Tylenol) 650 mg Q6H PRN ORAL For Headache 02/19/20 07:15 03/20/20 07:14 Acetaminophen/ Codeine Phosphate (Tylenol #3) 1 tab Q6H PRN ORAL pain 02/19/20 07:15 02/26/20 07:14 Ceftriaxone Sodium 1 gm/ Dextrose 55 ml @ 110 mls/hr Q24H IVPB 02/19/20 14:00 02/26/20 13:59 02/20/20 13:41 Dextrose (Dextrose 50%) 25 ml Q30M PRN IV Hypoglycemia 02/19/20 12:00 05/19/20 11:59 Dextrose (Dextrose 50%) 50 ml Q30M PRN IV Hypoglycemia 02/19/20 12:00 05/19/20 11:59 Docusate Sodium (Colace) 100 mg THREE TIMES A DAY ORAL 02/19/20 09:00 03/20/20 08:59 02/20/20 13:26 Insulin Aspart (NovoLOG) BEFORE MEALS AND HS SUBQ 02/19/20 16:30 05/19/20 16:29 02/20/20 11:51 Metoprolol Tartrate (Lopressor) 25 mg Q12HR ORAL 02/20/20 21:00 05/20/20 20:59 Ondansetron HCl (Zofran) 4 mg Q6H PRN IVP Nausea & Vomiting 02/19/20 07:15 03/20/20 07:14 Pantoprazole (Protonix) 40 mg DAILY ORAL 02/19/20 09:00 03/20/20 08:59 02/20/20 08:29 Potassium Chloride (K-Dur) 10 meq DAILY ORAL 02/19/20 10:40 05/19/20 10:39 02/20/20 08:28 Promethazine HCl/ Codeine (Phenergan with Codeine) 5 ml Q4H PRN ORAL For Cough 02/19/20 11:45 03/20/20 11:44 Rivaroxaban (Xarelto) 20 mg DAILY ORAL 02/19/20 10:43 05/19/20 10:42 02/20/20 08:30 Zolpidem Tartrate (Ambien) 5 mg HSPRN PRN ORAL Insomnia 02/19/20 07:15 02/26/20 07:14 Hillary Naik M.D. Feb 20, 2020 15:28
--- NOTE | 2020-02-20 15:35 | General Progress Note ---
Assessment/Plan Assessment/Plan: Assessment - Abdominal distention, apparently chronic and baseline for this patient - Iron deficiency anemia - paraplegia - dyspnea - atrial fibrillation Recommendations - check stool OB - check KUB - IV Fe - Family to decide on possible GI w/u (EGD/Colon) Thank you Kim Kurtz MD Subjective Allergies: Coded Allergies: NO KNOWN ALLERGIES (Verified Allergy, Unknown, 02/19/20) Objective Last 24 Hour Vital Signs Date Time Temp Pulse Resp B/P (MAP) Pulse Ox O2 Delivery O2 Flow Rate FiO2 02/20/20 12:00 87 02/20/20 11:44 97.8 90 18 105/81 (89) 98 02/20/20 09:45 Nasal Cannula 2.0 02/20/20 08:00 78 02/20/20 08:00 97.9 85 18 125/54 (77) 92 02/20/20 04:00 80 02/20/20 04:00 98.1 75 23 131/64 (86) 94 02/20/20 00:00 97.6 74 22 128/63 (84) 95 02/20/20 00:00 69 02/19/20 21:58 38 02/19/20 21:00 Nasal Cannula 2.0 02/19/20 20:35 78 114/61 02/19/20 20:00 89 02/19/20 20:00 98.4 76 22 114/73 (87) 95 02/19/20 16:00 97.6 87 18 118/66 (83) 98 02/19/20 16:00 71 Intake and Output 02/19/20 02/20/20 19:00 07:00 Intake Total 336 ml Output Total 600 ml Balance 336 ml -600 ml Intake Oral 336 ml Output Urine Total 600 ml Laboratory Tests 02/20/20 05:35: White Blood Count 5.9, Red Blood Count 4.54, Hemoglobin 9.8L, Hematocrit 35.6L, Mean Corpuscular Volume 78L, Mean Corpuscular Hemoglobin 21.7L, Mean Corpuscular Hemoglobin Concent 27.7L, Red Cell Distribution Width 17.3H, Platelet Count 235, Mean Platelet Volume 6.3L, Neutrophils (%) (Auto) 67.5, Lymphocytes (%) (Auto) 24.5, Monocytes (%) (Auto) 6.2, Eosinophils (%) (Auto) 0.9, Basophils (%) (Auto) 0.9, Prothrombin Time 12.9H, Prothromb Time International Ratio 1.2H, Activated Partial Thromboplast Time 27, Sodium Level 139, Potassium Level 3.3L, Chloride Level 94L, Carbon Dioxide Level > 45*H, Blood Urea Nitrogen 7, Creatinine 0.3L, Estimat Glomerular Filtration Rate > 60 , Glucose Level 166#H, Calcium Level 8.9, Total Bilirubin 0.4, Aspartate Amino Transf (AST/SGOT) 16, Alanine Aminotransferase (ALT/SGPT) 24, Alkaline Phosphatase 86, Troponin I 0.008, Pro-B-Type Natriuretic Peptide 633H, Total Protein 6.9, Albumin 3.1L, Globulin 3.8, Albumin/Globulin Ratio 0.8L, Thyroid Stimulating Hormone (TSH) 3.622, Free Thyroxine 1.07 02/20/20 11:36: Arterial Blood pH 7.427, Arterial Blood Partial Pressure CO2 65.9*H, Arterial Blood Partial Pressure O2 72.1L, Arterial Blood HCO3 42.5*H, Arterial Blood Oxygen Saturation 94.3L, Arterial Blood Base Excess 15.5*H, Curtis Test Positive 02/20/20 14:10: Stool Occult Blood [Pending] Height (Feet): 5 Weight (Pounds): 190 Kim Kurtz MD Feb 20, 2020 15:35
[2020-02-20 16:08] VITALS: BP 135/57
--- NOTE | 2020-02-20 19:59 | Diagnostic Imaging Report ---
EXAM: XR Abdomen, 1 View CLINICAL HISTORY: ABD DIST TECHNIQUE: Frontal supine view of the abdomen/pelvis. COMPARISON: No relevant prior studies available. FINDINGS: Nonspecific bowel gas pattern with scattered mildly gaseous distended bowel loops. No evidence of high-grade obstruction or pneumatosis.
[2020-02-20 20:00] VITALS: BP 132/78
[2020-02-20] MEDS ORDERED: Iron Sucrose 100 MG in NS 55 ML IV SCH (21:00)
--- NOTE | 2020-02-20 22:45 | Consultation ---
DATE OF CONSULTATION: 02/20/2020 GASTROENTEROLOGY CONSULTATION CHIEF COMPLAINT: I was asked to see this patient by Dr. Lawson Lindsey for evaluation of anemia with iron deficiency as well as abdominal distention. HISTORY OF PRESENT ILLNESS: The patient is an unfortunate 89-year-old woman who was brought into the hospital due to shortness of breath and weakness. The patient apparently fell about 5 years ago resulting in a significant spinal cord injury and paraplegia. She has not been able to walk since then. She has had a chronic [place] catheter for 5 years, which was apparently removed recently due to some bleeding in the [place] area. A recent CT scan was done, and I am not sure of the results, but the family stated nothing significant is told to them. The patient was noting progressive shortness of breath for the past 2 to 3 days and was initially taken to [facility] and subsequently transferred here to [facility] for further evaluation and care. Her abdomen appears distended on visualization, but according to the daughter, Jodee, her abdomen has always been big. She has been having regular bowel movements. According to the daughter, the patient has not had a colonoscopy in the past. The patient denies any abdominal pain or nausea or vomiting. Her admission evaluation, however, showed some degree of anemia with iron deficiency. 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 MEDICATIONS: See the chart list for details. ALLERGIES: None. FAMILY HISTORY: Noncontributory. SOCIAL HISTORY: The patient is cared for by her daughter. She is Chinese-speaking. She does not smoke or drink alcohol. PHYSICAL EXAMINATION: GENERAL: This is a pleasant woman, seen in her room. HEENT: Normocephalic and atraumatic. Sclerae anicteric. Oropharynx clear. NECK: Supple. CHEST: Revealed coarse breath sounds. CARDIOVASCULAR: Revealed a regular rate. ABDOMEN: Somewhat distended, but apparently just obese as it was soft and without masses and without tenderness and without any tympanic percussion. EXTREMITIES: Revealed trace edema. LABORATORY DATA: Noted. ASSESSMENT: This patient had an abdominal girth which is per family large at baseline and normal for her and I doubt if her abdominal distention is anything acute. However, a KUB can be done to at least rule out fecal loading. She also has anemia with iron deficiency, which may be indicative of chronic GI loss such as occult malignancy. I have discussed the finding and a typical workup which would include endoscopy and colonoscopy. However, this should be weighed against the patient's overall health and paraplegia and the overall goals and values were discussed with the daughter. The daughter stated that she would discuss the matter with the rest of family members and give the medical team response with respect to her wishes. In the meantime, the patient received intravenous iron to replenish the stores and I would also check a stool occult blood to see if she is Hemoccult positive. Her oral diet can be given as tolerated with some degree of aspiration precautions. RECOMMENDATIONS: Per above discussion and per orders written in the chart. Thank you for asking me to participate in the care of this patient. Kim Kurtz M.D. DR: KESHIA JOB#: [id number] CC: CHAYITO
[2020-02-21] VITALS: BP 122/65
[2020-02-21 04:00] VITALS: BP 116/74
[2020-02-21] MEDS: NovoLOG Insulin Flexpen SUBQ SCH ×3 (06:57→17:00)
[2020-02-21 07:49] LABS: EOSINOPHILS % (AUTO) 0.6 % (0.0-3.0); HEMOGLOBIN 9.6 G/DL (12.0-16.0); LYMPHOCYTES % (AUTO) 24.3 % (20.0-45.0); MEAN CORPUSCULAR VOLUME 77 FL (80-99); MONOCYTES % (AUTO) 7.9 % (1.0-10.0); NEUTROPHILS % (AUTO) 66.1 % (45.0-75.0); PLATELET COUNT 251 K/UL (150-450); RED BLOOD COUNT 4.42 M/UL (4.20-5.40); RED CELL DISTRIBUTION WIDTH 16.9 % (11.6-14.8); WHITE BLOOD COUNT 7.4 K/UL (4.8-10.8)
[2020-02-21 08:00] VITALS: BP 132/54
[2020-02-21 08:09] LABS: ANION GAP 5 mmol/L (5-15); BLOOD UREA NITROGEN 4 mg/dL (7-18); CALCIUM 8.4 MG/DL (8.5-10.1); CARBON DIOXIDE 36 MMOL/L (21-32); CHLORIDE 93 MMOL/L (98-107); CREATININE 0.3 MG/DL (0.55-1.30); POTASSIUM 3.6 MMOL/L (3.5-5.1); SODIUM 134 MMOL/L (136-145)
--- NOTE | 2020-02-21 08:29 | Pulmonology Progress Note ---
Subjective ROS Limited/Unobtainable: No Allergies: Coded Allergies: NO KNOWN ALLERGIES (Verified Allergy, Unknown, 02/19/20) Subjective on O2 via NC; no signs of resp distress CO2 down to 36 Mg 1.7 denies CP, cough remain in isolation Objective Last 24 Hour Vital Signs Date Time Temp Pulse Resp B/P (MAP) Pulse Ox O2 Delivery O2 Flow Rate FiO2 02/21/20 04:00 97.4 88 21 116/74 (88) 95 02/21/20 04:00 98 02/21/20 00:00 97.8 85 21 122/65 (84) 95 02/21/20 00:00 70 02/20/20 21:05 79 132/78 02/20/20 21:00 Nasal Cannula 2.0 02/20/20 20:00 86 02/20/20 20:00 98.4 80 21 132/78 (96) 94 02/20/20 16:38 79 02/20/20 16:08 83 18 135/57 (83) 96 02/20/20 12:00 87 02/20/20 11:44 97.8 90 18 105/81 (89) 98 02/20/20 09:45 Nasal Cannula 2.0 Intake and Output 02/20/20 02/21/20 19:00 07:00 Intake Total 610 ml 250 ml Output Total 450 ml Balance 610 ml -200 ml Intake Oral 610 ml 250 ml Output Urine Total 450 ml # Voids 1 1 # Bowel Movements 1 1 General Appearance: no acute distress, other - bedridden chroncially ill Peruvian speaking obese female in NAD HEENT: normocephalic, atraumatic, anicteric, mucous membranes moist Respiratory: no respiratory distress, no accessory muscle use, decreased breath sounds Cardiovascular: normal peripheral pulses, normal rate Abdomen: soft, non tender - obese Extremities: pedal pulses normal, other - +1 edema BLE Neurologic: abnormal gait - bedridden , alert, responsive, other - quadriplegia Musculoskeletal: atrophy Microbiology Date/Time Source Procedure Growth Status 02/19/20 10:39 Nasopharynx Coronavirus COVID-19 PCR ([facility]) - Final Complete Laboratory Tests 02/20/20 11:36: Arterial Blood pH 7.427, Arterial Blood Partial Pressure CO2 65.9*H, Arterial Blood Partial Pressure O2 72.1L, Arterial Blood HCO3 42.5*H, Arterial Blood Oxygen Saturation 94.3L, Arterial Blood Base Excess 15.5*H, Curtis Test Positive 02/20/20 14:10: Stool Occult Blood Negative 02/21/20 07:05: White Blood Count 7.4, Red Blood Count 4.42, Hemoglobin 9.6L, Hematocrit 34.0L, Mean Corpuscular Volume 77L, Mean Corpuscular Hemoglobin 21.6L, Mean Corpuscular Hemoglobin Concent 28.2L, Red Cell Distribution Width 16.9H, Platelet Count 251, Mean Platelet Volume 6.3L, Neutrophils (%) (Auto) 66.1, Lymphocytes (%) (Auto) 24.3, Monocytes (%) (Auto) 7.9, Eosinophils (%) (Auto) 0.6, Basophils (%) (Auto) 1.0, Sodium Level 134L, Potassium Level 3.6, Chloride Level 93L, Carbon Dioxide Level 36H, Anion Gap 5, Blood Urea Nitrogen 4L, Creatinine 0.3L, Estimat Glomerular Filtration Rate > 60, Glucose Level 153H, Calcium Level 8.4L, Magnesium Level 1.7L Current Medications Medications (Trade) Dose Ordered Sig/Alethea Route PRN Reason Start Time Stop Time Status Last Admin Dose Admin Acetaminophen (Tylenol) 650 mg Q6H PRN ORAL For Headache 02/19/20 07:15 03/20/20 07:14 Acetaminophen/ Codeine Phosphate (Tylenol #3) 1 tab Q6H PRN ORAL pain 02/19/20 07:15 02/26/20 07:14 Ceftriaxone Sodium 1 gm/ Dextrose 55 ml @ 110 mls/hr Q24H IVPB 02/19/20 14:00 02/26/20 13:59 02/20/20 13:41 Dextrose (Dextrose 50%) 25 ml Q30M PRN IV Hypoglycemia 02/19/20 12:00 05/19/20 11:59 Dextrose (Dextrose 50%) 50 ml Q30M PRN IV Hypoglycemia 02/19/20 12:00 05/19/20 11:59 Docusate Sodium (Colace) 100 mg THREE TIMES A DAY ORAL 02/19/20 09:00 03/20/20 08:59 02/20/20 13:26 Insulin Aspart (NovoLOG) BEFORE MEALS AND HS SUBQ 02/19/20 16:30 05/19/20 16:29 02/21/20 06:57 Iron Sucrose 100 mg/Sodium Chloride 60 ml @ 240 mls/hr BEDTIME IV 02/20/20 21:00 02/24/20 21:14 02/20/20 21:06 Metoprolol Tartrate (Lopressor) 25 mg Q12HR ORAL 02/20/20 21:00 05/20/20 20:59 02/20/20 21:05 Ondansetron HCl (Zofran) 4 mg Q6H PRN IVP Nausea & Vomiting 02/19/20 07:15 03/20/20 07:14 Pantoprazole (Protonix) 40 mg DAILY ORAL 02/19/20 09:00 03/20/20 08:59 02/20/20 08:29 Potassium Chloride (K-Dur) 10 meq DAILY ORAL 02/19/20 10:40 05/19/20 10:39 02/20/20 08:28 Promethazine HCl/ Codeine (Phenergan with Codeine) 5 ml Q4H PRN ORAL For Cough 02/19/20 11:45 03/20/20 11:44 Rivaroxaban (Xarelto) 20 mg DAILY ORAL 02/19/20 10:43 05/19/20 10:42 02/20/20 08:30 Zolpidem Tartrate (Ambien) 5 mg HSPRN PRN ORAL Insomnia 02/19/20 07:15 02/26/20 07:14 Assessment/Plan Assessment/Plan ASSESSMENT Suspected COVID-19 infection A. fib with RVR Pulmonary edema SOB Acute and chronic resp failure CO2 retention Home O2 dependent Severe pulmonary HTN History of hypertension with current hypotension DM type 2 Morbid obesity Congestive heart failure Hypokalemia Iron deficiency anemia Incomplete quadriplegia, status post cervical laminectomy Chronic anticoagulation PLAN OF CARE tele O2 titrate to keep sat above 90%, pulm toilet isolation; COVID 19 02/18 not detected , fup with 2 nd test result empiric abx-> ceftriaxone a/tussive prn CXR 02/19 ->unchanged mild perihilar and lower lobe mixed interstitial and alveolar infiltrates. The infiltrates may represent pulmonary edema , however superimposed pneumonia, particular the left lower lobe cannot be excluded. given CO2 retention, ABG -> CO2 66, no acidosis try to titrate O2 to 1 L via NC, probably chronic CO2 retention, no signs of resp distress this am CO2 down to 35 f/up with CXR in am ECHO with pEF 55%, no WMA, RVSP of 61 c/w severe pulm HTN BP improved while off BB and Lasix, BB resumed per cardio fup with further cardio recs troponin NGT, tele with intermittent A fib with controlled vent response BS management with SSI continue Xarelto GI prophylaxis replace Mg, check in am monitor HH with goal to keep Hgb>7, ->at baseline anemia w/up c/w BILLY CEA WNL stool OB NGT supportive care case discussed and evaluated by supervising physician Frances Chacon NP Feb 21, 2020 08:29
[2020-02-21] MEDS ORDERED: Tubing IV Secondary IV ONE (08:34)
[2020-02-21] MEDS: Xarelto 10mg tab ORAL SCH (09:07)
[2020-02-21] MEDS: Docusate 100mg cap ORAL SCH ×3 (09:07→17:25)
[2020-02-21 11:41] VITALS: BP 156/84
[2020-02-21] MEDS: cefTRIAXone 1 GM in D5W 55 ML IVPB SCH (14:02)
--- NOTE | 2020-02-21 14:41 | Internal Med Progress Note ---
Subjective Date of Service: Feb 21, 2020 Physician Name PalomaRashi Attending Physician Lawson Lindsey MD Current Medications Medications (Trade) Dose Ordered Sig/Alethea Route PRN Reason Start Time Stop Time Status Last Admin Dose Admin Acetaminophen (Tylenol) 650 mg Q6H PRN ORAL For Headache 02/19/20 07:15 03/20/20 07:14 Acetaminophen/ Codeine Phosphate (Tylenol #3) 1 tab Q6H PRN ORAL pain 02/19/20 07:15 02/26/20 07:14 Ceftriaxone Sodium 1 gm/ Dextrose 55 ml @ 110 mls/hr Q24H IVPB 02/19/20 14:00 02/26/20 13:59 02/21/20 14:02 Dextrose (Dextrose 50%) 25 ml Q30M PRN IV Hypoglycemia 02/19/20 12:00 05/19/20 11:59 Dextrose (Dextrose 50%) 50 ml Q30M PRN IV Hypoglycemia 02/19/20 12:00 05/19/20 11:59 Docusate Sodium (Colace) 100 mg THREE TIMES A DAY ORAL 02/19/20 09:00 03/20/20 08:59 02/21/20 09:07 Insulin Aspart (NovoLOG) BEFORE MEALS AND HS SUBQ 02/19/20 16:30 05/19/20 16:29 02/21/20 11:29 Iron Sucrose 100 mg/Sodium Chloride 60 ml @ 240 mls/hr BEDTIME IV 02/20/20 21:00 02/24/20 21:14 02/20/20 21:06 Metoprolol Tartrate (Lopressor) 25 mg Q12HR ORAL 02/20/20 21:00 05/20/20 20:59 02/21/20 09:07 Ondansetron HCl (Zofran) 4 mg Q6H PRN IVP Nausea & Vomiting 02/19/20 07:15 03/20/20 07:14 Pantoprazole (Protonix) 40 mg DAILY ORAL 02/19/20 09:00 03/20/20 08:59 02/21/20 09:07 Potassium Chloride (K-Dur) 10 meq DAILY ORAL 02/19/20 10:40 05/19/20 10:39 02/21/20 09:07 Promethazine HCl/ Codeine (Phenergan with Codeine) 5 ml Q4H PRN ORAL For Cough 02/19/20 11:45 03/20/20 11:44 Rivaroxaban (Xarelto) 15 mg DAILY ORAL 02/22/20 09:00 05/22/20 08:59 Zolpidem Tartrate (Ambien) 5 mg HSPRN PRN ORAL Insomnia 02/19/20 07:15 02/26/20 07:14 Allergies: Coded Allergies: NO KNOWN ALLERGIES (Verified Allergy, Unknown, 02/19/20) ROS Limited/Unobtainable: Yes Subjective 89 YO F admitted with shortness of breath. Now CHF and pneumonia. Cover for Int Med-DR Lindsey Objective Last Vital Signs Date Time Temp Pulse Resp B/P (MAP) Pulse Ox O2 Delivery O2 Flow Rate FiO2 02/21/20 11:42 75 02/21/20 11:41 97.9 18 156/84 (108) 95 02/21/20 09:00 Nasal Cannula 2.0 Laboratory Tests Test 02/21/20 07:05 White Blood Count 7.4 K/UL (4.8-10.8) Red Blood Count 4.42 M/UL (4.20-5.40) Hemoglobin 9.6 G/DL (12.0-16.0) L Hematocrit 34.0 % (37.0-47.0) L Mean Corpuscular Volume 77 FL (80-99) L Mean Corpuscular Hemoglobin 21.6 PG (27.0-31.0) L Mean Corpuscular Hemoglobin Concent 28.2 G/DL (32.0-36.0) L Red Cell Distribution Width 16.9 % (11.6-14.8) H Platelet Count 251 K/UL (150-450) Mean Platelet Volume 6.3 FL (6.5-10.1) L Neutrophils (%) (Auto) 66.1 % (45.0-75.0) Lymphocytes (%) (Auto) 24.3 % (20.0-45.0) Monocytes (%) (Auto) 7.9 % (1.0-10.0) Eosinophils (%) (Auto) 0.6 % (0.0-3.0) Basophils (%) (Auto) 1.0 % (0.0-2.0) Sodium Level 134 MMOL/L (136-145) L Potassium Level 3.6 MMOL/L (3.5-5.1) Chloride Level 93 MMOL/L (98-107) L Carbon Dioxide Level 36 MMOL/L (21-32) H Anion Gap 5 mmol/L (5-15) Blood Urea Nitrogen 4 mg/dL (7-18) L Creatinine 0.3 MG/DL (0.55-1.30) L Estimat Glomerular Filtration Rate > 60 mL/min (>60) Glucose Level 153 MG/DL (74-106) H Calcium Level 8.4 MG/DL (8.5-10.1) L Magnesium Level 1.7 MG/DL (1.8-2.4) L Microbiology Date/Time Source Procedure Growth Status 02/19/20 10:39 Nasopharynx Coronavirus COVID-19 PCR ([facility]) - Final Complete Intake and Output 02/20/20 02/21/20 19:00 07:00 Intake Total 610 ml 250 ml Output Total 450 ml Balance 610 ml -200 ml Intake Oral 610 ml 250 ml Output Urine Total 450 ml # Voids 1 1 # Bowel Movements 1 1 Objective PHYSICAL EXAMINATION: GENERAL: Patient is awake, responsive, no acute distress. HEAD AND NECK: Pupils are equal and reactive to light. Extraocular movements intact. Neck was supple. No JVD. LUNGS: Good air entry. Decreased air in the bases. No wheezes or rhonchi. HEART: S1, S2. Irregular. Distant heart sounds. No murmur or gallops. ABDOMEN: Soft, nondistended, nontender. Morbidly obese. EXTREMITIES: No cyanosis, clubbing, or edema. NEUROLOGIC: Limited secondary to patient's status. Cranial nerves II through XII grossly intact. Patient is moving upper extremities. Lower extremities weak and limited range of motion. Gait was not assessed due to patient's status. RECTAL/GENITOURINARY: Refused and deferred. PSYCHIATRIC: Mood and affect unable to obtain. Assessment/Plan Assessment/Plan ASSESSMENT: 1. Atrial fibrillation with rapid ventricular rate. 2. Hypotension, most likely secondary to tachyarrhythmia. 3. History of high blood pressure. 4. Hyponatremia. 5. Iron deficiency anemia. 6. Diabetes type 2. 7. Morbid obesity. 8. Congestive heart failure. 9. Abnormal chest x-ray, possible due to acute CHF versus pneumonia. PLAN: 1. Admit patient to monitor unit. 2. Dr. Posadas = Pulmonary Critical Care 3. Dr. Jacinto=Cardiology Electrophysiology. 4. Follow up with 2D echo. 5. GI= Dr. Sprague 6. Infectious Disease = Dr. Naik. 7. Stool for occult blood pending 8. continue on anticoagulation with Xarelto. 9. Code status is Full Code. Rashi Dow MD Feb 21, 2020 14:41
[2020-02-21 16:00] VITALS: BP 111/65
--- NOTE | 2020-02-21 19:35 | General Progress Note ---
Assessment/Plan Assessment/Plan: Assessment - Abdominal distention, apparently chronic and baseline for this patient - Iron deficiency anemia - paraplegia - dyspnea - atrial fibrillation Recommendations - check stool OB --> (-) - check KUB --> NSBGP - IV Fe - Family to decide on possible GI w/u (EGD/Colon) Subjective Allergies: Coded Allergies: NO KNOWN ALLERGIES (Verified Allergy, Unknown, 02/19/20) Subjective above note awake, NAD no call back from family today Objective Last 24 Hour Vital Signs Date Time Temp Pulse Resp B/P (MAP) Pulse Ox O2 Delivery O2 Flow Rate FiO2 02/21/20 16:00 99.0 81 18 111/65 (80) 87 02/21/20 15:41 79 02/21/20 11:42 75 02/21/20 11:41 97.9 75 18 156/84 (108) 95 02/21/20 09:07 76 132/54 02/21/20 09:00 Nasal Cannula 2.0 02/21/20 08:22 84 02/21/20 08:00 96.8 76 18 132/54 (80) 94 02/21/20 07:50 Nasal Cannula 2.0 02/21/20 04:00 97.4 88 21 116/74 (88) 95 02/21/20 04:00 98 02/21/20 00:00 97.8 85 21 122/65 (84) 95 02/21/20 00:00 70 02/20/20 21:05 79 132/78 02/20/20 21:00 Nasal Cannula 2.0 02/20/20 20:00 86 02/20/20 20:00 98.4 80 21 132/78 (96) 94 Intake and Output 02/20/20 02/21/20 19:00 07:00 Intake Total 610 ml 250 ml Output Total 450 ml Balance 610 ml -200 ml Intake Oral 610 ml 250 ml Output Urine Total 450 ml # Voids 1 1 # Bowel Movements 1 1 Laboratory Tests 02/21/20 07:05: White Blood Count 7.4, Red Blood Count 4.42, Hemoglobin 9.6L, Hematocrit 34.0L, Mean Corpuscular Volume 77L, Mean Corpuscular Hemoglobin 21.6L, Mean Corpuscular Hemoglobin Concent 28.2L, Red Cell Distribution Width 16.9H, Platelet Count 251, Mean Platelet Volume 6.3L, Neutrophils (%) (Auto) 66.1, Lymphocytes (%) (Auto) 24.3, Monocytes (%) (Auto) 7.9, Eosinophils (%) (Auto) 0.6, Basophils (%) (Auto) 1.0, Sodium Level 134L, Potassium Level 3.6, Chloride Level 93L, Carbon Dioxide Level 36H, Anion Gap 5, Blood Urea Nitrogen 4L, Creatinine 0.3L, Estimat Glomerular Filtration Rate > 60, Glucose Level 153H, Calcium Level 8.4L, Magnesium Level 1.7L 02/21/20 14:40: Stool Occult Blood [Pending] Height (Feet): 5 Weight (Pounds): 190 Objective Elderly woman NCAT supple CTA RR abd soft NT Obese no edema Kim Kurtz MD Feb 21, 2020 19:35
[2020-02-22] MEDS ORDERED: Xarelto 15mg tab ORAL SCH (09:00)
--- NOTE | 2020-02-23 10:27 | Discharge Summary ---
Discharge Summary Discharge Summary _ DATE OF ADMISSION: 02/19/2020 DATE OF DISCHARGE: 02/21/2020 Patient left AGAINST MEDICAL ADVICE REASON FOR ADMISSION: 89 years old female with past medical history of hypertension, congestive heart failure, quadriplegia secondary to the spinal injury, chronic respiratory failure ,home oxygen dependent, morbid obesity, chronic atrial fibrillation with chronic anticoagulation with Xarelto , presented initially to [facility], complaining of shortness of breath and weakness. Patient was using at home 2 L of oxygen via nasal cannula. Patient reported progressive worsening of shortness of breath and generalized weakness over the past 2 to 3 days , and subsequently was sent to [place] [facility] for evaluation. She denied fevers of chills. She denied chest pain. Patient was noted to be in atrial fibrillation with rapid ventricular response. Chest x-ray revealed congestion. Patiten was hypotensive. Patient subsequently was transferred to [facility] for further evaluation and management due to insurance reasons. Patient admitted with atrial fibrillation with rapid ventricular response, hypotension, possible pneumonia versus congestive heart failure. CONSULTANTS: adding machine mechanic Dr. Garcia pulmonary Dr. Posadas ID specialist Dr. Naik GI specialist Dr. Kurtz [facility]: Patient admitted to monitored floor. Supplemental oxygen provided and titrated to keep pulse oximetry above 90%. Pulmonary toilet provided. Patient initially was kept in isolation. SARS COV 2 on 02/18 and 02/19 was not detected. Patient started on empiric antibiotics. Antitussive provided as needed. Sputum culture revealed Anna. Follow-up chest x-ray revealed unchanged mild perihilar and lower lobe mixed interstitial and alveolar infiltrates, likely representing pulmonary edema. Superimposed pneumonia, particular the left lower lobe, cannot be excluded. Given initial CO2 retention ,ABG was done ,which revealed CO2 66, but no acidosis. Patient was titrated down to 1 L via nasal cannula . The next day CO2 went down to 25. Probably chronic CO2 retention , no signs of respiratory distress. Echocardiogram revealed preserved ejection fraction 55%. No evidence of wall motion abnormality. Right ventricular systolic pressure of 61 consistent with severe pulmonary hypertension. Patient was initially kept of beta-aleksandra and Lasix , given hypotension. Digoxin x1 given for rate control. Xarelto continued. Blood pressure improved , while off beta-blockade and Lasix. Subsequently beta-aleksandra resumed , as per adding machine mechanic. Serial troponin negative. Telemetry showed intermittent atrial fibrillation with controlled ventricular response. Blood sugar was managed with sliding scale of insulin. GI prophylaxis provided. Electrolytes corrected as needed. Renal parameters and volumes were closely monitored. Hemoglobin and hematocrit were closely monitored with goal to keep hemoglobin above 7, and remained at baseline. Anemia work-up was consistent with anemia of iron deficiency. CEA within normal limits, stool OB negative x2. Supportive care provided. On patient decided to leave AGAINST MEDICAL ADVICE. Daughter was at the bedside. She brought her own equipment. The risks and consequences of signing AGAINST MEDICAL ADVICE were discussed with patient in detail. Patient verbalized understanding, nevertheless signed AMA form and left. Prior to discharge blood pressure 111/65, no signs of respiratory distress. Heart rate controlled. FINAL DIAGNOSES: Suspected COVID-19 infection-ruled out Atrial fibrillation with rapid ventricular response Acute and chronic respiratory failure Pulmonary edema Congestive heart failure Possible pneumonia Shortness of breath CO2 retention Home O2 dependent Severe pulmonary hypertension History of hypertension with current hypotension, possibly due to tachyarrhythmia Iron deficiency anemia Incomplete quadriplegia, status post cervical laminectomy Chronic anticoagulation Hypokalemia Diabetes mellitus type 2 Morbid obesity Frances Chacon NP Feb 23, 2020 10:27
== END 2020-02-21 20:45 | disposition left against medical advice (07) | DRG 189 ==
LOC: 2E 01:40
DX: J96.20 Acute and chronic respiratory failure, unspecified whether with hypoxia or hypercapnia (principal); G82.52 Quadriplegia, C1-C4 incomplete; J44.1 Chronic obstructive pulmonary disease with (acute) exacerbation; E87.1 Hypo-osmolality and hyponatremia; I13.0 Hypertensive heart and chronic kidney disease with heart failure and stage 1 through stage 4 chronic kidney disease, or unspecified chronic kidney disease; J96.22 Acute and chronic respiratory failure with hypercapnia; I48.91 Unspecified atrial fibrillation; I95.89 Other hypotension; I50.9 Heart failure, unspecified; D50.9 Iron deficiency anemia, unspecified; E66.01 Morbid (severe) obesity due to excess calories; E11.9 Type 2 diabetes mellitus without complications; Z68.37 Body mass index [BMI] 37.0-37.9, adult; Z79.01 Long term (current) use of anticoagulants; I27.20 Pulmonary hypertension, unspecified; Z20.828 Contact with and (suspected) exposure to other viral communicable diseases; Z99.81 Dependence on supplemental oxygen; I95.9 Hypotension, unspecified; N18.9 Chronic kidney disease, unspecified; E87.6 Hypokalemia; E11.22 Type 2 diabetes mellitus with diabetic chronic kidney disease
CPT/HCPCS: 36415; 36600; 71045; 74018; 80048; 80053; 82270; 82378; 82607; 82746; 82803; 82962; 83540; 83550; 83615; 83735; 83880; 84100; 84439; 84443; 84484; 85007; 85025; 85044; 85060; 85610; 85651; 85730; 87070; 87205; 93005; 93306; J1815; J8499